=== PATIENT | male | born 1995 | race African-American/Black ===

== ENCOUNTER 2017-05-29 20:08 | Emergency (ER) | payer SELFPAY ==
[~2017-05-29 20:08] MED LIST: BACT800T5 PO; CLIN1CAP5 PO
[2017-05-29 20:09] VITALS: BP 125/76; PULSE 99; RESP 16; TEMP 101.3; O2SAT 95
== END 2017-05-29 21:36 | disposition left against medical advice (07) ==
LOC: NED 20:08
DX: J11.1 Influenza due to unidentified influenza virus with other respiratory manifestations (principal); Z53.21 Procedure and treatment not carried out due to patient leaving prior to being seen by health care provider
CPT/HCPCS: 99281

== ENCOUNTER 2017-05-29 22:08 | Emergency (ER) | payer SELFPAY ==
[~2017-05-29] VITALS: Ht 190.5 cm; Wt 75.0 kg
[2017-05-29 22:11] VITALS: BP 141/70; PULSE 100; RESP 16; TEMP 103; O2SAT 96
== END 2017-05-30 | disposition left against medical advice (07) ==
LOC: NED 22:08
DX: J11.1 Influenza due to unidentified influenza virus with other respiratory manifestations (principal); Z53.21 Procedure and treatment not carried out due to patient leaving prior to being seen by health care provider
CPT/HCPCS: 99281